=== PATIENT | female | born 2000 | race Caucasian/White ===

== ENCOUNTER 2020-11-22 04:30 | Emergency (ER) | payer BC ==
[~2020-11-22] VITALS: Ht 162.6 cm; Wt 47.7 kg
[2020-11-22] MEDS ORDERED: PROZAC 10MG10 MG (04:38)
[2020-11-22] MEDS ORDERED: ATARAX 25MG25 MG/TAB (04:38)
[2020-11-22] MEDS ORDERED: PROPRANOLOL (04:39)
[2020-11-22 05:05] LABS: BASO # 0.1 (0.0-0.2); EOS % 0.4 % (0-4.0); GRAN % 64.5 % (42.2-75.2); HEMATOCRIT 42.1 % (35.0-45.0); HEMOGLOBIN 14.4 g/dl (12.0-15.0); LYMPH # 2.1 (1.2-3.4); MEAN CELL VOLUME 92 fl (80.0-95.0); MEAN CORPUSCULAR HEMOGLOBIN 32 pg (26.0-32.0); MEAN CORPUSCULAR HGB CONC 34 g/dl (33.0-37.0); MONO # 0.5 (0.1-0.6); MONO % 6.8 % (1.7-9.3); PLATELET COUNT 356 K/mm3 (130-400); RED BLOOD COUNT 4.57 M/mm3 (4.10-5.30); REDCELL DISTRIBUTION WIDTH-CV 12.4 % (11.5-14.5)
[2020-11-22 05:28] LABS: TRICYCLIC ANTIDEPRESS URINE NEGATIVE
[2020-11-22 05:37] LABS: ALBUMIN 5.2 gm/dL (3.5-5.0); BILIRUBIN,TOTAL 0.3 mg/dL (0.0-1.0); CALCIUM 9.4 mg/dL (8.4-10.2); CREATININE, serum 0.7 (0.52-1.25); POTASSIUM 3.4 mmol/L (3.4-5.0); TOTAL PROTEIN 9.7 gm/dL (6.4-8.2)
[2020-11-22 05:45] VITALS: BP 124/80; PULSE 89
== END 2020-11-22 05:56 | disposition home or self-care (01) ==
LOC: COL.ER 04:30 → EDSEX 04:31 → COL.ER 04:31
PROVIDERS: Emergency Medicine Emergency Medical Services
DX: F10.129 Alcohol abuse with intoxication, unspecified (principal); F41.9 Anxiety disorder, unspecified

== ENCOUNTER → 2022-04-20 | Outpatient (CLI) | payer BC ==
[~2022-04-20] MED LIST: ATARAX 25MG25 MG/TAB; PROPRANOLOL; PROZAC 10MG10 MG
== END ==
LOC: COL.RAD 06:36
DX: R10.11 Right upper quadrant pain (principal)
CPT/HCPCS: A9537; J2805